=== PATIENT | female | born 2005 | race Two or more races ===

== ENCOUNTER 2025-11-07 03:16 | Emergency (ER) | payer OTHER ==
[~2025-11-07] VITALS: Ht 154.9 cm; Wt 54.4 kg
[2025-11-07] MEDS ORDERED: GABAPENTIN 100 MG CAPSULE ONE (04:15)
[2025-11-07] MEDS: GABAPENTIN 100 MG CAPSULE PO ONE (04:19)
[2025-11-07 04:32] LABS: PLATELET COUNT (AUTO) 221 K/uL (150-450); RED BLOOD CELL COUNT(AUTO) 4.51 MIL/uL (4.0-5.2); RED CELL DISTRIBUTION WIDTH 12.6 % (11.5-15.0); WHITE BLOOD COUNT (AUTO) 4.3 K/uL (4.3-11.0)
[2025-11-07 04:44] LABS: CALCIUM, SERUM 8.8 mg/dL (8.5-10.1); CREATININE 0.9 mg/dL (0.6-1.3); SODIUM SERUM 139.0 mmol/L (136-145); UREA NITROGEN, BLOOD 11.0 mg/dL (7-18)
[2025-11-07 04:48] LABS: INR 1.01 (0.91-1.10)
[2025-11-07 04:49] LABS: ASPARTATE AMINOTRANSFERASE 16.0 U/L (15-37); TOTAL PROTEIN, SERUM 7.7 g/dL (6.4-8.2)
[2025-11-07] MEDS ORDERED: HYDROCODONE/APAP 5/325MG TABLET ONE (05:06)
[2025-11-07] MEDS: HYDROCODONE/APAP 5/325MG TABLET PO ONE (05:08)
[2025-11-07] MEDS ORDERED: IBUP-1490 PO (06:50)
[2025-11-07 07:08] VITALS: BP 124/81; TEMP 98.6; O2SAT 98
== END 2025-11-07 07:09 | disposition home or self-care (01) ==
LOC: ER 03:22
DX: M54.50 Low back pain, unspecified (principal); R06.02 Shortness of breath
CPT/HCPCS: 36415; 72131-TC; 80048-TC; 80076-TC; 83690-TC; 85025-TC; 85730-TC